=== PATIENT | male | born 1960 | race Native Hawaiian/Other Pacific Islander ===

== ENCOUNTER 2020-01-30 13:05 | Outpatient (CLI) | payer OTHER | END 2020-01-30 19:24 | disposition home or self-care (01) | LOC: CT 13:05 | DX: R41.82 Altered mental status, unspecified (principal) ==

== ENCOUNTER 2021-02-16 09:35 | Outpatient (CLI) | payer OTHER | END 2021-02-16 22:20 | disposition home or self-care (01) | LOC: RAD 09:35 | PROVIDERS: ATTEND Specialist | DX: M79.642 Pain in left hand (principal); R20.0 Anesthesia of skin ==

== ENCOUNTER 2021-03-22 09:13 | Outpatient (CLI) | payer OTHER | END 2021-03-22 21:34 | disposition home or self-care (01) | LOC: RESP 09:13 | PROVIDERS: ATTEND Specialist | DX: G56.10 Other lesions of median nerve, unspecified upper limb (principal); G56.22 Lesion of ulnar nerve, left upper limb | CPT/HCPCS: 95885; 95909 ==

== ENCOUNTER 2021-04-06 14:38 | Outpatient (CLI) | payer OTHER | END 2021-04-06 17:53 | disposition home or self-care (01) | LOC: MRI 14:38 | PROVIDERS: ATTEND Specialist | DX: R20.0 Anesthesia of skin (principal); M54.12 Radiculopathy, cervical region ==

== ENCOUNTER 2021-05-02 10:59 | Outpatient (CLI) | payer OTHER | END 2021-05-02 21:15 | disposition home or self-care (01) | LOC: MRI 10:59 | PROVIDERS: ATTEND Specialist | DX: M51.9 Unspecified thoracic, thoracolumbar and lumbosacral intervertebral disc disorder (principal) ==

== ENCOUNTER 2021-09-12 13:50 | Outpatient (CLI) | payer OTHER | END 2021-09-12 19:55 | disposition home or self-care (01) | LOC: LAB 13:50 | PROVIDERS: ATTEND Internal Medicine | DX: U07.1 COVID-19 (principal); Z20.822 Contact with and (suspected) exposure to COVID-19 | CPT/HCPCS: 87635; G2023; U0003 ==

== ENCOUNTER 2021-09-18 14:27 | Inpatient (IN) | payer OTHER ==
[~2021-09-18] VITALS: Ht 177.8 cm; Wt 82.8 kg
[2021-09-18 14:30] VITALS: BP 164/92; TEMP 96.8
[2021-09-18 15:27] VITALS: BP 154/95
[2021-09-18 15:47] LABS: PLATELET COUNT 166 K/uL (142-355)
[2021-09-18 15:54] LABS: POTASSIUM 4.6 mmol/L (3.6-5.2)
[2021-09-18 16:58] VITALS: BP 149/90
[2021-09-18 20:00] VITALS: BP 142/91; TEMP 100.3
[2021-09-18 22:42] VITALS: BP 142/91; TEMP 100.3; Ht 177.8 cm; Wt 82.8 kg
[2021-09-19 00:08] VITALS: BP 113/74; TEMP 98.4
[2021-09-19 04:13] VITALS: BP 124/79; TEMP 98.8
[2021-09-19 05:51] LABS: PLATELET COUNT 162 K/uL (142-355)
[2021-09-19 08:00] VITALS: BP 131/84; TEMP 97.7
[2021-09-19 12:00] VITALS: BP 112/67; TEMP 98
[2021-09-19 16:00] VITALS: BP 127/82; TEMP 98.6
[2021-09-19 20:00] VITALS: BP 119/79; TEMP 98.4
[2021-09-20] VITALS: BP 121/78; TEMP 99.1
[2021-09-20 04:00] VITALS: BP 139/84; TEMP 97.9
[2021-09-20 07:43] LABS: PLATELET COUNT 209 K/uL (142-355)
[2021-09-20 08:00] VITALS: BP 122/77; TEMP 97.6
[2021-09-20 12:00] VITALS: BP 134/87; TEMP 98.5
[2021-09-20 16:00] VITALS: BP 138/93; TEMP 98.3
[2021-09-20 20:00] VITALS: BP 134/83; TEMP 98.8
[2021-09-21] VITALS: BP 125/80; TEMP 98.4
[2021-09-21 04:00] VITALS: BP 134/93; TEMP 98.3
[2021-09-21 08:00] VITALS: BP 130/89; TEMP 98.6
[2021-09-21 12:00] VITALS: BP 147/94; TEMP 99.9
[2021-09-21 16:00] VITALS: BP 139/83; TEMP 100.8
[2021-09-21 20:00] VITALS: BP 141/84; TEMP 98.6
[2021-09-22] VITALS: BP 141/85; TEMP 99.1
[2021-09-22 04:00] VITALS: BP 135/82; TEMP 98.5
[2021-09-22 08:00] VITALS: BP 129/90; TEMP 98.7
[2021-09-22 12:00] VITALS: BP 149/93; TEMP 100.3
[2021-09-22 12:57] LABS: PLATELET COUNT 235 K/uL (142-355)
[2021-09-22 16:00] VITALS: BP 132/83; TEMP 99.4
[2021-09-22 20:27] VITALS: BP 129/80; TEMP 99.1
[2021-09-23 00:19] VITALS: BP 130/86; TEMP 99.1
[2021-09-23 04:00] VITALS: BP 162/86; TEMP 99.6
[2021-09-23 04:32] LABS: PLATELET COUNT 229 K/uL (142-355)
[2021-09-23 04:37] LABS: POTASSIUM 3.7 mmol/L (3.6-5.2)
[2021-09-23 08:00] VITALS: BP 155/92; TEMP 98.9
[2021-09-23 12:00] VITALS: BP 134/72; TEMP 99.1
[2021-09-23 15:51] VITALS: BP 132/77; TEMP 98.4
[2021-09-23 20:00] VITALS: BP 135/86; TEMP 97.2
[2021-09-24] VITALS: BP 133/87; TEMP 97.2
[2021-09-24 04:00] VITALS: BP 121/76; TEMP 97.4
[2021-09-24 05:01] LABS: PLATELET COUNT 261 K/uL (142-355)
[2021-09-24 05:08] LABS: POTASSIUM 4.5 mmol/L (3.6-5.2)
[2021-09-24 08:00] VITALS: BP 128/80; TEMP 98.8
[2021-09-24 12:00] VITALS: BP 129/81; TEMP 98.4
[2021-09-24 16:00] VITALS: BP 128/80; TEMP 98.5
[2021-09-24 20:00] VITALS: BP 130/87; TEMP 98.9
[2021-09-25] VITALS: BP 135/77; TEMP 98
[2021-09-25 04:07] VITALS: BP 123/81; TEMP 98
[2021-09-25 05:15] LABS: PLATELET COUNT 279 K/uL (142-355)
[2021-09-25 05:32] LABS: POTASSIUM 4.5 mmol/L (3.6-5.2)
[2021-09-25 08:00] VITALS: BP 129/89; TEMP 98.7
[2021-09-25 12:00] VITALS: BP 131/81; TEMP 97.9
[2021-09-25 16:00] VITALS: BP 127/68; TEMP 98.1
[2021-09-25 20:00] VITALS: BP 120/73; TEMP 98.1
[2021-09-26] VITALS: BP 119/82; TEMP 98.9
[2021-09-26 04:00] VITALS: BP 131/87; TEMP 97.8
[2021-09-26 06:13] LABS: POTASSIUM 4.2 mmol/L (3.6-5.2)
[2021-09-26 06:38] LABS: PLATELET COUNT 268 K/uL (142-355)
[2021-09-26 08:00] VITALS: BP 116/74; TEMP 99
[2021-09-26 12:00] VITALS: BP 130/71; TEMP 98
[2021-09-26 16:00] VITALS: BP 127/76; TEMP 98.8
[2021-09-26 20:00] VITALS: BP 128/59; TEMP 98.1
[2021-09-27 00:13] VITALS: BP 133/82; TEMP 97.9
[2021-09-27 04:00] VITALS: BP 127/80; TEMP 98.6
[2021-09-27 05:36] LABS: POTASSIUM 3.8 mmol/L (3.6-5.2)
[2021-09-27 05:46] LABS: PLATELET COUNT 276 K/uL (142-355)
[2021-09-27 08:00] VITALS: BP 133/79; TEMP 98.1
[2021-09-27 12:00] VITALS: BP 117/72; TEMP 97.7
[2021-09-27 16:00] VITALS: BP 130/80; TEMP 98.7
[2021-09-27 20:18] VITALS: BP 144/83; TEMP 98.1
[2021-09-28 00:07] VITALS: BP 118/59; TEMP 99.3
[2021-09-28 04:26] VITALS: BP 105/72; TEMP 98.7
[2021-09-28 05:31] LABS: POTASSIUM 3.9 mmol/L (3.6-5.2)
[2021-09-28 05:39] LABS: PLATELET COUNT 281 K/uL (142-355)
[2021-09-28 08:00] VITALS: BP 120/76; TEMP 98
[2021-09-28 12:00] VITALS: BP 124/68; TEMP 97.9
== END 2021-09-28 15:00 | disposition home or self-care (01) | DRG 177 ==
LOC: ED 14:27 → MED/SURG 18:40
PROVIDERS: Emergency Medicine; Internal Medicine; ADMIT Internal Medicine Endocrinology, Diabetes & Metabolism; ATTEND Internal Medicine Endocrinology, Diabetes & Metabolism
DX: U07.1 COVID-19 (principal); J12.82 Pneumonia due to coronavirus disease 2019; J96.01 Acute respiratory failure with hypoxia; E86.0 Dehydration; M62.81 Muscle weakness (generalized); R19.7 Diarrhea, unspecified
CPT/HCPCS: 36415; 36600; 80048; 80053; 81000; 82553; 82805; 85027; 85379; 85385; 85610; 86140; 87502; 87635; 93005; 94667; 94668; 94760; 96365; 96367; 96372; 96374; 96375; 99220; 99284; G0378; J0248; J0456; J0696; J1100; J1650; J3490; U0003

== ENCOUNTER 2021-10-06 14:11 | Outpatient (CLI) | payer OTHER | END 2021-10-06 21:14 | disposition home or self-care (01) | LOC: CT 14:11 | PROVIDERS: ATTEND Internal Medicine | DX: U07.1 COVID-19 (principal); J18.9 Pneumonia, unspecified organism; R09.02 Hypoxemia | CPT/HCPCS: Q9963 ==

== ENCOUNTER 2021-10-19 11:16 | Outpatient (CLI) | payer OTHER | END 2021-10-19 19:05 | disposition home or self-care (01) | LOC: RAD 11:16 | PROVIDERS: ATTEND Internal Medicine | DX: J18.9 Pneumonia, unspecified organism (principal) ==

== ENCOUNTER 2021-11-24 09:42 | Outpatient (CLI) | payer OTHER | END 2021-11-24 19:58 | disposition home or self-care (01) | LOC: RAD 09:42 | PROVIDERS: ATTEND Internal Medicine Sleep Medicine | DX: J18.9 Pneumonia, unspecified organism (principal); U09.9 Post COVID-19 condition, unspecified ==

== ENCOUNTER 2022-10-12 11:19 | Outpatient (CLI) | payer OTHER ==
[2022-10-12 11:55] LABS: PLATELET COUNT 206 K/uL (142-355)
[2022-10-12 12:13] LABS: POTASSIUM 4.1 mmol/L (3.6-5.2)
== END 2022-10-12 20:41 | disposition home or self-care (01) ==
LOC: LABW 11:19
PROVIDERS: ATTEND Internal Medicine
DX: E78.2 Mixed hyperlipidemia (principal); R53.83 Other fatigue; I10 Essential (primary) hypertension
CPT/HCPCS: 36415; 80053; 80061; 81002; 83880; 84402; 84403; 84439; 84443; 85027; 85652

== ENCOUNTER 2022-10-19 08:11 | Outpatient (CLI) | payer OTHER | END 2022-10-19 21:21 | disposition home or self-care (01) | LOC: US 08:11 | PROVIDERS: ATTEND Internal Medicine | DX: R79.89 Other specified abnormal findings of blood chemistry (principal) | CPT/HCPCS: 36415; 80074; 82105; 82378; 86316 ==

== ENCOUNTER 2022-10-31 13:19 | Outpatient (CLI) | payer OTHER | END 2022-10-31 18:59 | disposition home or self-care (01) | LOC: MRI 13:19 | PROVIDERS: ATTEND Internal Medicine | DX: R16.0 Hepatomegaly, not elsewhere classified (principal) | CPT/HCPCS: A9576 ==